=== PATIENT | male | born 1990 | race Two or more races ===

== ENCOUNTER 2024-04-07 18:21 | Emergency (ER) | payer OTHER ==
[~2024-04-07] VITALS: Ht 180.3 cm; Wt 113.7 kg
[2024-04-07] MEDS ORDERED: ATOR40TA75 PO (18:36)
[2024-04-07 20:21] LABS: BASO # 0.1 10^3/uL (0.0-0.2); BASO % 0.9 % (0.0-1.0); EOS # 0.1 10^3/uL (0.0-0.5); EOS % 1.4 % (0.0-3.0); HEMATOCRIT 46.2 % (42.0-52.0); HEMOGLOBIN 15.6 g/dl (13.5-17.5); LYMPH # 2.9 10^3/uL (1.5-5.0); LYMPH % 36.9 % (24.0-44.0); MEAN CORPUSCULAR HEMOGLOBIN 28.9 pg (27.0-33.0); MEAN CORPUSCULAR HGB CONC 33.8 g/dl (32.0-36.5); MEAN CORPUSCULAR VOLUME 85.7 fl (80.0-96.0); MONO # 0.6 10^3/uL (0.0-0.8); MONO % 7.2 % (2.0-8.0); NEUTROPHILS # 4.2 10^3/uL (1.5-8.5); NEUTROPHILS % 53.5 % (36.0-66.0); PLATELET COUNT, AUTOMATED 316 10^3/uL (150-450); RED BLOOD COUNT 5.39 10^6/uL (4.30-6.10); WHITE BLOOD COUNT 7.8 10^3/uL (4.0-10.0)
[2024-04-07] MEDS ORDERED: PROHANCE 279.3MG/ML 15ML VIAL As Ordered ONE (20:27)
[2024-04-07] MEDS ORDERED: PROHANCE 279.3MG/ML 5ML VIAL As Ordered ONE (20:27)
[2024-04-07 20:32] LABS: ERYTHROCYTE SEDIMENTATION RATE 4 mm/hr (0-15)
[2024-04-07] MEDS: methylPREDNISolone 1,000 MG, VIAL MATE ADAPTER 1 EACH in NS 250 ML IV ONE (23:05)
[2024-04-08 00:33] VITALS: BP 132/80; TEMP 97.4; O2SAT 97
[2024-04-09] MEDS ORDERED: BACL10TA2 PO (20:20)
[2024-04-12 02:02] LABS: ANGIOTENSIN 1 CONVERTING ENZYM 29 U/L (9-67)
[2024-04-14 22:07] LABS: T PALLIDUM AB (FTA-AB) Nonreactive (Nonreactive)
== END 2024-04-08 00:36 | disposition home or self-care (01) ==
LOC: M ED 18:21
DX: H46.9 Unspecified optic neuritis (principal); E78.5 Hyperlipidemia, unspecified; Z79.02 Long term (current) use of antithrombotics/antiplatelets; Z79.899 Other long term (current) drug therapy
CPT/HCPCS: 70543; 70553; 82164; 85025; 85652; 86780; 96365; 99284; A9576; J2919

== ENCOUNTER 2024-04-08 17:24 | Emergency (ER) | payer OTHER ==
[~2024-04-08] VITALS: Ht 180.3 cm; Wt 113.0 kg
[2024-04-08 17:24] VITALS: BP 134/79; TEMP 97.2; O2SAT 96
[~2024-04-08 17:24] MED LIST: ATOR40TA75 PO
[2024-04-08] MEDS: methylPREDNISolone 1,000 MG, VIAL MATE ADAPTER 1 EACH in NS 250 ML IV ONE (18:03)
[2024-04-09] MEDS ORDERED: BACL10TA2 PO (20:20)
== END 2024-04-08 19:29 | disposition home or self-care (01) ==
LOC: M ED 17:24
DX: H46.9 Unspecified optic neuritis (principal); E78.5 Hyperlipidemia, unspecified; Z79.02 Long term (current) use of antithrombotics/antiplatelets; Z79.891 Long term (current) use of opiate analgesic
CPT/HCPCS: 96365; 99283; J2919

== ENCOUNTER 2024-04-09 17:24 | Emergency (ER) | payer OTHER ==
[~2024-04-09] VITALS: Ht 180.3 cm; Wt 115.4 kg
[2024-04-09] MEDS: METOCLOPRAMIDE INJ 10MG/2ML VIAL IV ONE (18:07)
[2024-04-09] MEDS: methylPREDNISolone 1,000 MG, VIAL MATE ADAPTER 1 EACH in NS 250 ML IV ONE (18:07)
[2024-04-09] MEDS: PANTOPRAZOLE 40MG VIAL IV ONE (18:07)
[2024-04-09] MEDS: BACLOFEN 10 MG TAB PO ONE (19:48)
[2024-04-09] MEDS ORDERED: BACL10TA2 PO (20:20)
[2024-04-09 20:28] VITALS: BP 135/74; TEMP 97.3; O2SAT 98
== END 2024-04-09 20:27 | disposition home or self-care (01) ==
LOC: M ED 17:24
DX: R06.6 Hiccough (principal); H46.9 Unspecified optic neuritis; E78.5 Hyperlipidemia, unspecified; Z79.02 Long term (current) use of antithrombotics/antiplatelets; Z79.899 Other long term (current) drug therapy
CPT/HCPCS: 96365; 96366; 96375; 99283; J2470; J2765; J2919